=== PATIENT | female | born 1975 | race Caucasian/White ===

== ENCOUNTER → 2016-08-05 | Outpatient (CLI) | payer MEDICARE, MEDICAID ==
[~2016-08-05] MED LIST: ALBU17AE3; ALDACTONE25 MG; ALPR1T; ALPR1TAB; AMLO10TA4; BPR100TCR PO; CEPH-38 PO; CHOL2000 PO; FENO145T2 PO; HCT25T PO; HYDR-3816 PO; INSU100I16 SQ; LOSA25TA15 PO; MELO15TA14; METF-380; OMG1KC PO; PARO40TA47; PGLT30T PO; SMV20T PO; TRM50T PO; ZLP10T PO
== END ==
LOC: RAD 12:41
PROVIDERS: ATTEND Nurse Practitioner
DX: S43.431A Superior glenoid labrum lesion of right shoulder, initial encounter (principal); X58.XXXA Exposure to other specified factors, initial encounter; Y99.8 Other external cause status

== ENCOUNTER → 2016-09-10 | Outpatient (CLI) | payer MEDICARE, MEDICAID | LOC: RAD 12:43 | PROVIDERS: ATTEND Nurse Practitioner | DX: S43.431A Superior glenoid labrum lesion of right shoulder, initial encounter (principal); X58.XXXA Exposure to other specified factors, initial encounter; Y99.8 Other external cause status ==

== ENCOUNTER 2016-10-22 11:30 | Outpatient (RCR) | payer MEDICARE, MEDICAID ==
[2016-10-22] MEDS ORDERED: SUCR1TAB36 PO (14:06)
[2016-10-22] MEDS ORDERED: RT-ALBUINH IH (14:06)
[2016-10-22] MEDS ORDERED: FURO-125 PO (14:06)
[2016-10-22] MEDS ORDERED: ALPR2TAB2 PO (14:06)
[2016-10-22] MEDS ORDERED: GABA300C PO (14:06)
[2016-10-22] MEDS ORDERED: HYDR-3820 PO (14:06)
[2016-10-22] MEDS ORDERED: SPIR100T2 PO (14:06)
[2016-10-22] MEDS ORDERED: LOSA100T3 PO (14:06)
[2016-10-22] MEDS ORDERED: INSU100V5 SQ (14:06)
[2016-10-22] MEDS ORDERED: ASPI-586 PO (14:06)
[2016-10-22] MEDS ORDERED: CHOL2000 PO (14:06)
[2016-10-22] MEDS ORDERED: AMLO10TA4 PO (14:06)
[2016-10-22] MEDS ORDERED: PANT40TA2 PO (14:06)
[2016-10-22] MEDS ORDERED: FENO145T2 PO (14:11)
== END 2016-10-22 12:57 | disposition home or self-care (01) ==
PROVIDERS: ATTEND Nurse Practitioner
DX: M25.511 Pain in right shoulder (principal)

== ENCOUNTER 2016-10-22 13:46 | Outpatient (CLI) | payer MEDICARE, MEDICAID ==
[~2016-10-22] VITALS: Ht 170.2 cm; Wt 141.3 kg
[2016-10-22] MEDS ORDERED: LOSA100T3 PO (14:06)
[2016-10-22] MEDS ORDERED: HYDR-3820 PO (14:06)
[2016-10-22] MEDS ORDERED: INSU100V5 SQ (14:06)
[2016-10-22] MEDS ORDERED: SUCR1TAB36 PO (14:06)
[2016-10-22] MEDS ORDERED: ASPI-586 PO (14:06)
[2016-10-22] MEDS ORDERED: RT-ALBUINH IH (14:06)
[2016-10-22] MEDS ORDERED: FURO-125 PO (14:06)
[2016-10-22] MEDS ORDERED: ALPR2TAB2 PO (14:06)
[2016-10-22] MEDS ORDERED: CHOL2000 PO (14:06)
[2016-10-22] MEDS ORDERED: AMLO10TA4 PO (14:06)
[2016-10-22] MEDS ORDERED: PANT40TA2 PO (14:06)
[2016-10-22] MEDS ORDERED: SPIR100T2 PO (14:06)
[2016-10-22] MEDS ORDERED: GABA300C PO (14:06)
[2016-10-22] MEDS ORDERED: FENO145T2 PO (14:11)
[2016-10-22 14:12] VITALS: BP 132/86
[2016-10-22 15:27] LABS: ANION GAP 12 MMOL/L (5-14); BLOOD UREA NITROGEN 11 MG/DL (7-18); BUN/CREATININE RATIO 11; CALCIUM 9.2 MG/DL (8.5-10.1); CARBON DIOXIDE 21 MMOL/L (21-32); CHLORIDE 104 MMOL/L (98-107); CREATININE SERUM 0.99 MG/DL (0.60-1.30); GFR ESTIMATED > 60; GLUCOSE 265 MG/DL (70-105); POTASSIUM 3.9 MMOL/L (3.6-5.0); SODIUM 137 MMOL/L (135-145)
== END 2016-10-22 15:00 ==
LOC: PREOP 13:46
PROVIDERS: ATTEND Orthopaedic Surgery
DX: Z01.812 Encounter for preprocedural laboratory examination (principal); S43.491A Other sprain of right shoulder joint, initial encounter; M25.811 Other specified joint disorders, right shoulder
CPT/HCPCS: 36415; 80048; 87081

== ENCOUNTER 2016-10-29 06:05 | Day surgery (SDC) | payer MEDICARE, MEDICAID ==
--- NOTE | 2016-10-21 11:39 | HISTORY AND PHYSICAL ---
DATE OF SERVICE: This will be for outpatient surgery on 10/29/2016 for right shoulder arthroscopy. HISTORY: The patient is a 40-year-old right-hand dominant female with a two-year history of right shoulder pain. She has undergone physical therapy without relief. She reports pain with overhead activities. She denies any specific trauma. She reports difficulty with sleeping on her side. She was unable to fit in the MRI. She was unable to undergo injections due to her labile blood sugar levels and due to functional impairment and failure to improve with conservative measures, the patient has elected to proceed with surgical intervention. REVIEW OF SYSTEMS: No chest pain. No shortness of breath. No dysuria. PAST MEDICAL HISTORY: Hypertension, congestive heart failure, diabetes, osteoarthritis, hyperlipidemia, anxiety and depression. PAST SURGICAL HISTORY: Ovarian cyst excision, cholecystectomy, section, tubal ligation, hysterectomy, herniorrhaphy, bilateral carpal tunnel. FAMILY HISTORY: Significant for depression, bipolar disorder, anxiety, hypertension, COPD, alcoholism, breast cancer. PRIMARY CARE PROVIDER: . MEDICATIONS: 1. Neurontin. 2. Protonix. 3. Alprazolam. 4. Hydrocodone. 5. Ventolin. 6. Norvasc. 7. Tri-Cor. 8. Aldactone. 9. Aspirin. 10. Cozaar. 11. Furosemide. 12. Carafate. 13. Levemir. ALLERGIES: 1. DIOVAN. 2. INTUNIV. 3. TEGRETOL. 4. ABILIFY. 5. CHANTIX. 6. LEXAPRO. 7. LITHIUM. 8. TOPAMAX. 9. MOBIC. SOCIAL HISTORY: The patient smokes one pack of cigarettes a day and drinks alcohol rarely. RADIOGRAPHS: Reveal no acute or chronic changes of the right shoulder. PHYSICAL EXAMINATION: GENERAL: The patient is well-developed, well-nourished in no acute distress. HEENT: Normocephalic, atraumatic. Pupils are equal, round and reactive to light. Oropharynx is clear. LUNGS: Clear to auscultation bilaterally. HEART: Regular rate and rhythm. ABDOMEN: Soft, nontender, nondistended. EXTREMITIES: The right shoulder demonstrates positive Neer's and positive Hawkin's sign. It shows a possible Pocahontas's maneuver. She has pain with apprehension, I believe, 3 locations. Active forward elevation is 170 degrees. External rotation is 70 degrees. Internal rotation is 80 degrees. She is tender over her bicipital groove. IMPRESSION: Right shoulder impingement with a SLAP tear. PLAN: Right shoulder arthroscopy with acromioplasty and biceps tenotomy. The risks, benefits, options, ramifications and recovery were discussed at length with the patient. She understands and wishes to proceed. Job ID: [id number] DocumentID: [id number] Dictated Date: 10/21/2016 09:20:28 Wall Insulation Sprayer Date: 10/21/2016 09:43:00 Dictated By: TERRY WILKES MD
[~2016-10-29] VITALS: Ht 170.2 cm; Wt 141.3 kg
[~2016-10-29 06:05] MED LIST changes: +ALPR2TAB2 PO; +AMLO10TA4 PO; +ASPI-586 PO; +FURO-125 PO; +GABA300C PO; +HYDR-3820 PO; +INSU100V5 SQ; +LOSA100T3 PO; +PANT40TA2 PO; +RT-ALBUINH IH; +SPIR100T2 PO; +SUCR1TAB36 PO
[2016-10-29] MEDS ORDERED: NS (IVPB) 50 ML ONE (06:38)
[2016-10-29] MEDS ORDERED: ceFAZolin 1,000 MG (ANCEF) VIAL ONE (06:38)
[2016-10-29] MEDS ORDERED: LACTATED RINGERS 1,000 ML IV PRN (06:38)
[2016-10-29 06:40] VITALS: BP 119/89
[2016-10-29] MEDS ORDERED: FAMOTIDINE 20MG/2ML IV (PEPCID) IV ONE (06:45)
[2016-10-29] MEDS ORDERED: LIDOCAINE PF 2% 5 ML (XYLOCAINE) VIAL ONE (06:50)
[2016-10-29] MEDS ORDERED: ROCURONIUM 50 MG/5 ML (ZEMURON) VIAL IV ONE (06:50)
[2016-10-29] MEDS ORDERED: proPOfol 200 MG/20 ML (DIPRIVAN) VIAL IV ONE ×2 (06:50→08:13)
[2016-10-29] MEDS ORDERED: fentaNYL INJECTION 100 MCG/2 ML AMP ONE (06:51)
[2016-10-29] MEDS ORDERED: MIDAZOLAM 2 MG/2 ML (VERSED) VIAL ONE (06:51)
[2016-10-29] MEDS ORDERED: ceFAZolin 1 GM/NS 50 ML IVPB IV ONE ×2 (07:00)
[2016-10-29] MEDS ORDERED: BUPIVACAINE 0.25% 30 ML (SENSORCAINE) VIAL ONE (07:10)
[2016-10-29] MEDS ORDERED: morphine PF (DURAMORPH) 10 MG/10 ML AMP ONE (07:10)
--- NOTE | 2016-10-29 07:28 | Progress Note-Pre Operative ---
Pre-Operative Progress Note H&P Reviewed The H&P was reviewed, patient examined and no changes noted. Date Seen by Provider: Oct 29, 2016 Time Seen by Provider: 07:15 Date H&P Reviewed: Oct 29, 2016 Time H&P Reviewed: 07:12 Pre-Operative Diagnosis: right shoulder SLAP tear and rotator cuff syndrome TERRY WILKES MD Oct 29, 2016 07:28
--- NOTE | 2016-10-29 07:29 | Progress Note-Post Operative ---
Post-Operative Progess Note Surgeon (s)/Cigar Wrapper Tender Automatic (s) Surgeon TERRY WILKES MD Cigar Wrapper Tender Automatic: Charles Yu Pre-Operative Diagnosis right shoulder SLAP tear and rotator cuff syndrome Post-Operative Diagnosis right shoulder SLAP tear, labral tear and rotator cuff syndrome Procedure & Operative Findings Date of Procedure 10/29/16 Procedure Performed/Findings right shoulder arthroscopic biceps tenotomy, labral debridement and acromioplasty Anesthesia Type GETA Estimated Blood Loss Estimated blood loss (mL): minimal Specimens/Packing Specimens Removed none Packing: none TERRY WILKES MD Oct 29, 2016 07:29
[2016-10-29] MEDS ORDERED: oxyCODONE/APAP 5/325MG (PERCOCET 5) TABLET PO PRN (07:30)
[2016-10-29] MEDS ORDERED: SEVOFLURANE (ULTANE) 15 ML INHAL SOLN ONE ×2 (08:07→08:22)
[2016-10-29] MEDS ORDERED: SUCCINYLCHOLINE INJ 100 MG/5 ML SYR ONE (08:07)
[2016-10-29] MEDS ORDERED: LACTATED RINGERS 1,000 ML IV ONE (08:07)
[2016-10-29] MEDS ORDERED: ONDANSETRON 4 MG/2 ML (SDV) Z0FRAN ONE (08:07)
[2016-10-29] MEDS ORDERED: morphine INJ 10 MG/ML 1ML (SYR OR VIAL) ONE (08:32)
[2016-10-29] MEDS: morphine INJ 10 MG/ML 1ML (SYR OR VIAL) IVP PRN ×2 (08:44→08:50)
[2016-10-29] MEDS ORDERED: ONDANSETRON 4 MG/2 ML (SDV) Z0FRAN IVP PRN (09:00)
--- NOTE | 2016-10-29 09:17 | OPERATIVE REPORT ---
DATE OF SERVICE: 10/29/2016 PREOPERATIVE DIAGNOSIS 1. Right shoulder slap tear. 2. Right shoulder rotator cuff syndrome. POSTOPERATIVE DIAGNOSIS: 1. Right shoulder slap tear. 2. Right shoulder rotator cuff syndrome. 3. Right shoulder labral tear. PROCEDURES: 1. Right shoulder arthroscopic biceps tenotomy. 2. Right shoulder arthroscopic debridement. 3. Right shoulder arthroscopic acromioplasty. SURGEON: Ariel Wilkes MD SHODER FILLER: Charles Yu, who assisted throughout the procedure and closed the incisions. ANESTHESIA: General endotracheal by Bethany Hamilton CRNA. ESTIMATED BLOOD LOSS: Minimal. DRAINS: None. COMPLICATIONS: None. POSTOPERATIVE PLAN: Sling wear for comfort with progressive range of motion as symptoms allow. The patient was transported to the recovery room awake and in stable condition. STATEMENT OF MEDICAL NECESSITY: The patient is a 40-year-old right hand dominant female with complaints of right shoulder pain, worse with overhead activity. She had a positive Boulder's maneuver, positive Neer and Hawkin sign. She had crepitus with glenohumeral rotation. She had failed to respond to conservative measures and due to functional impairment, the patient elected to proceed with surgical intervention. Examination under anesthesia revealed forward elevation of 160 degrees, external rotation of 80 degrees, internal rotation 70 degrees. ARTHROSCOPIC FINDINGS: The rotator cuff was intact throughout. There was a type 2 slap tear. In addition, there was a flap tear of the anterior labrum at the 3 o'clock position, but no evidence of a Bankart, Alpsa or Hagl lesion. The humeral head and glenoid demonstrated no gross chondral abnormalities. Subcoronal space demonstrated dense bursitis with sloping into the anterolateral acromion. PROCEDURE: After risks and benefits of the procedure were discussed and questions were answered an informed consent was signed and placed on the chart. The operative site was confirmed in the preoperative holding area and initialed by the surgeon. The patient was then transported to the operative room and after adequate levels of general endotracheal anesthetic were obtained, a timeout was called to confirm the operative site. The right upper extremity was prepped and draped in the usual sterile fashion. The shoulder joint was injected with 60 mL of fluid and a standard posterior portal was placed under direct visualization. Anterior portal was created in the interval between the subscapularis, biceps and glenoid. The biceps anchor was released and the stump was debrided with the shaver. The anterior labral flap was debrided with a shaver as well. The scope was then redirected into the subacromial space and a lateral port was created. Bursectomy was performed and the acromion was to a flat type 1 acromion. The subacromial space was copiously irrigated, the port sites were closed with 4-0 nylon in a simple interrupted fashion, the shoulder was injected with Duramorph. The port sites were infiltrated with plain Marcaine. A soft dressing and sling were applied and the patient was transported to the recovery room awake and in stable condition. Job ID: [id number] DocumentID: [id number] Dictated Date: 10/29/2016 08:35:33 Computer Repairer Date: 10/29/2016 09:16:43 Dictated By: ARIEL WILKES MD
[2016-10-29 09:25] VITALS: BP 119/88
[2016-10-29] MEDS ORDERED: OXYC-197 PO (09:46)
[2016-10-29 10:00] VITALS: BP 115/69
[2016-10-29 10:30] VITALS: BP 115/69
== END 2016-10-29 10:35 | disposition home or self-care (01) ==
LOC: SDC 06:05
PROVIDERS: ATTEND Orthopaedic Surgery
DX: S43.491A Other sprain of right shoulder joint, initial encounter (principal); M75.101 Unspecified rotator cuff tear or rupture of right shoulder, not specified as traumatic; I11.0 Hypertensive heart disease with heart failure; I50.9 Heart failure, unspecified; E11.43 Type 2 diabetes mellitus with diabetic autonomic (poly)neuropathy; E78.5 Hyperlipidemia, unspecified; K21.9 Gastro-esophageal reflux disease without esophagitis; F41.9 Anxiety disorder, unspecified; E66.01 Morbid (severe) obesity due to excess calories; F32.9 Major depressive disorder, single episode, unspecified; Z79.899 Other long term (current) drug therapy; Z79.82 Long term (current) use of aspirin; F17.210 Nicotine dependence, cigarettes, uncomplicated; Z68.42 Body mass index [BMI] 45.0-49.9, adult
CPT/HCPCS: 82962

== ENCOUNTER 2016-11-14 09:00 | Outpatient (RCR) | payer MEDICARE, MEDICAID ==
[~2016-11-14 09:00] MED LIST changes: +OXYC-197 PO
== END 2016-11-15 | disposition home or self-care (01) ==
PROVIDERS: ATTEND Orthopaedic Surgery
DX: M25.511 Pain in right shoulder; Z98.890 Other specified postprocedural states

== ENCOUNTER 2016-12-10 10:18 | Outpatient (RCR) | payer MEDICARE, MEDICAID | END 2016-12-12 16:06 | disposition home or self-care (01) | PROVIDERS: ATTEND Orthopaedic Surgery | DX: M25.511 Pain in right shoulder (principal); Z98.890 Other specified postprocedural states ==

== ENCOUNTER → 2017-11-30 | Outpatient (CLI) | payer MEDICARE, MEDICAID ==
[~2017-11-30] MED LIST changes: +HYDR-34 PO; -HYDR-3816 PO; -OXYC-197 PO; +OXYC1TAB87 PO; -SPIR100T2 PO; +SPIR100T4 PO
--- NOTE | 2017-11-30 12:23 | Diagnostic Imaging Report ---
INDICATION: Routine screening. COMPARISON: 07/03/2015. TECHNIQUE: 2D and 3D bilateral screening mammography was performed with CAD. FINDINGS: Scattered fibroglandular densities are identified bilaterally. No mass or malignant-appearing microcalcifications are seen. The axillae are unremarkable. IMPRESSION: No mammographic features suspicious for malignancy are identified. ACR BI-RADS Category 1: Negative. Result letter will be mailed to the patient. Note: At least 10% of breast cancer is not imaged by mammography. Dictated by: Dictated on workstation # [id number]
== END ==
LOC: RAD 08:17
PROVIDERS: ATTEND Nurse Practitioner Community Health
DX: Z12.31 Encounter for screening mammogram for malignant neoplasm of breast (principal)
CPT/HCPCS: 77067

== ENCOUNTER → 2017-12-24 | Outpatient (CLI) | payer MEDICARE, MEDICAID ==
--- NOTE | 2017-12-24 13:21 | Diagnostic Imaging Report ---
PROCEDURE: US Thyroid. TECHNIQUE: Multiple real-time grayscale images were obtained of the thyroid in various projections. INDICATION: Lump in the throat. FINDINGS: The right lobe of the thyroid measures 6.0 x 2.6 x 2.0 cm and the left lobe measures 5.2 x 1.4 x 1.5 cm. Left lobe is homogeneous without evidence of discrete mass. There is a solid-appearing nodule in the posterior mid right lobe measuring 1.7 x 1.5 x 1.6 cm. Larger solid nodule more inferiorly in the right lobe is seen measuring 2.2 x 1.6 x 2.7 cm. No other masses are seen. IMPRESSION: Solid nodules right lobe of the thyroid, largest lower pole. Fine-needle aspiration could be performed. Dictated by: Dictated on workstation # [id number]
== END ==
LOC: RAD 11:53
PROVIDERS: ATTEND Nurse Practitioner Community Health
DX: E04.2 Nontoxic multinodular goiter (principal); E66.01 Morbid (severe) obesity due to excess calories; Z86.39 Personal history of other endocrine, nutritional and metabolic disease
CPT/HCPCS: 76536

== ENCOUNTER → 2018-01-21 | Outpatient (CLI) | payer MEDICARE, MEDICAID ==
[~2018-01-21] VITALS: Ht 167.6 cm; Wt 140.2 kg
[~2018-01-21] MED LIST changes: +LIDOCAINE 1% INJ 20 ML 20 ML VIAL INJ ONE
--- NOTE | 2018-01-21 14:02 | Diagnostic Imaging Report ---
Indication: Right thyroid nodule. Patient presents for ultrasound-guided biopsy. Patient was brought to the procedure room and placed on the table in a supine position. Ultrasound imaging over the neck was performed to evaluate appropriate entry site. Neck was then prepped and draped in the usual sterile fashion. Small amount of 1% lidocaine was utilized for local anesthesia. A total of 3 passes were made into the dominant solid nodule in the lower pole of the right lobe of the thyroid with 25-gauge needles. 2 passes were made with the 20-gauge Temno needle and small cores were obtained. Hemostasis was obtained using manual compression. Patient tolerated the procedure well and left the department in stable condition. Impression: Successful ultrasound guided right thyroid mass FNA and core biopsy, as described. Pathology results are currently pending. Dictated by: Dictated on workstation # [id number]
== END ==
LOC: RAD 09:13
PROVIDERS: ATTEND Surgery
DX: E04.1 Nontoxic single thyroid nodule (principal)
CPT/HCPCS: 76942; 88173; 88305

== ENCOUNTER → 2020-06-05 | Outpatient (CLI) | payer MEDICARE, MEDICAID ==
[~2020-06-05] MED LIST changes: +ACHYD1T PO; -HYDR-3820 PO; -LIDOCAINE 1% INJ 20 ML 20 ML VIAL INJ ONE
== END ==
LOC: CARD 12:47
PROVIDERS: ATTEND Internal Medicine Cardiovascular Disease
DX: I11.9 Hypertensive heart disease without heart failure (principal)
CPT/HCPCS: 93306

== ENCOUNTER → 2020-06-06 | Outpatient (CLI) | payer MEDICARE, MEDICAID ==
[~2020-06-06] VITALS: Ht 167 cm; Wt 134.0 kg
[~2020-06-06] MED LIST changes: +CATHETER FLUSH 10 ML SYR IV PRN; +REGADENOSON 0.4 MG/5 ML SYR (LEXISCAN) IV ONE
[2020-06-06 09:06] VITALS: BP 130/92
[2020-06-06 09:13] VITALS: BP 140/73
[2020-06-06 09:16] VITALS: BP 134/77
--- NOTE | 2020-06-06 14:01 | Cardiology Stress Test Report ---
Stress Test Report Date of Procedure/Referring: Date of Procedure: Jun 06, 2020 PCP Kosta Eid MD Admitting Physician Center/[facility] Indications: Hypertension Baseline Heart Rate: 80 Baseline Blood Pressure: Blood Pressure Systolic: 134 Blood Pressure Diastolic: 77 Baseline Vitals Vital Signs Date Time Temp Pulse Resp B/P (MAP) Pulse Ox O2 Delivery O2 Flow Rate FiO2 06/06/20 09:06 77 18 130/92 (105) 94 Room Air Summary After explaining the procedure to the patient, she signed a consent and then brought to the stress nuclear laboratory. Patient received 0.4 mg Lexiscan for stress test, ECG, heart rate and blood pressure were monitored continuously. Resting and stress dose of radio tracer were injected, imaging was acquired and reviewed in short axis, horizontal long axis and vertical long axis views. TID: 1.22 SSS: 5 SDS: 4 EF: 47 1. Patient tolerated Lexiscan well 2. Transient ischemic dilatation with TID 1.22 3. Mild decreased uptake with mild reversibility in the mid to apical anterolateral and inferolateral wall 4. Normal left ventricular size, EF 47% KOSTA EID MD Jun 06, 2020 14:01
== END ==
LOC: CARD 07:45
PROVIDERS: ATTEND Internal Medicine Cardiovascular Disease
DX: I10 Essential (primary) hypertension (principal); R07.9 Chest pain, unspecified
CPT/HCPCS: 78452; 93017; A9502

== ENCOUNTER 2020-06-13 11:00 | Day surgery (SDC) | payer MEDICARE, MEDICAID ==
[2020-06-13] VITALS (8 sets, daily range): BP systolic 102–120; BP diastolic 71–91
[~2020-06-13] VITALS: Ht 167.6 cm; Wt 136.1 kg
[2020-06-13 09:19] LABS: HEMOGLOBIN 17.3 g/dL (11.5-16.0); MEAN PLATELET VOLUME 10.5 fL (9.0-12.2); WHITE BLOOD COUNT 11.9 10^3/uL (4.3-11.0)
[2020-06-13 09:38] LABS: INR 0.9 (0.8-1.4); PROTHROMBIN TIME PATIENT 12.5 SEC (12.2-14.7)
[2020-06-13 09:48] LABS: ALANINE AMINOTRANSFERASE 22 U/L (0-55); ALBUMIN 4.5 GM/DL (3.2-4.5); ALKALINE PHOSPHATASE 79 U/L (40-136); BILIRUBIN,TOTAL 0.4 MG/DL (0.1-1.0); BUN/CREATININE RATIO 11; CALCIUM 9.4 MG/DL (8.5-10.1); CARBON DIOXIDE 22 MMOL/L (21-32); CHLORIDE 100 MMOL/L (98-107); CHOLESTEROL 203 MG/DL (< 200); CREATININE SERUM 0.95 MG/DL (0.60-1.30); GFR ESTIMATED > 60; GLUCOSE 242 MG/DL (70-105); HDL CHOLESTEROL 45 MG/DL (40-60); POTASSIUM 4.1 MMOL/L (3.6-5.0); SODIUM 137 MMOL/L (135-145); TOTAL PROTEIN 7.8 GM/DL (6.4-8.2); TRIGLYCERIDES 316 MG/DL (<150); VLDL CHOLESTEROL 63 MG/DL (5-40)
--- NOTE | 2020-06-13 10:01 | Diagnostic Imaging Report ---
PATIENT HISTORY: Chest pain. TECHNIQUE: Single frontal view of the chest. COMPARISON: 04/08/2007. FINDINGS: The lung volumes are normal. No focal consolidation is seen. No large pleural effusion or pneumothorax is seen. The cardiomediastinal silhouette is normal in size and contour. No acute osseous abnormality is seen. IMPRESSION: No acute pulmonary abnormality seen. Dictated by: Dictated on workstation # [id number]
[~2020-06-13 11:00] MED LIST changes: +AMIT25TA9 PO; +AMLO-251 PO; +ASPI-1238 PO; -CATHETER FLUSH 10 ML SYR IV PRN; +CETI10TA17 PO; +CHOL20002 PO; +CNC1KV IM; +CYCL10TA9 PO; +DICY20TA10 PO; +DULO60CA59 PO; +ESTR42.52 VG; +HALO15CR2 TP; +HEParin (CATH LAB) 2,000 ML IV ONE; +IBUP-1780 PO; +INSU100I14 SQ; +INSU200I4 SQ; +LEVO200T6 PO; +LEVO300T5 PO; +LIDOCAINE 1% INJ 20 ML 20 ML VIAL ONE; +LOSA50TA63 PO; +METF750T45 PO; +MUPI22OI2 TP; +NS IV 1000 ML 1,000 ML IV SCH; +NS IV 1000 ML 1,000 ML ONE; +NYST15CR TP; +PANT40TA52 PO; +PROP20TA5 PO; -REGADENOSON 0.4 MG/5 ML SYR (LEXISCAN) IV ONE; +RT-ALBUINH INH; +SEMA1PEN SQ
[2020-06-13] MEDS ORDERED: MIDAZOLAM 5 MG/5 ML (VERSED) VIAL ONE (11:18)
[2020-06-13] MEDS ORDERED: HEParin 1000 UNIT/ML (10ML VIAL) FOR BOLUS ONE (11:18)
[2020-06-13] MEDS ORDERED: fentaNYL INJ 100 MCG/2 ML AMP ONE (11:18)
[2020-06-13] MEDS ORDERED: VERAPAMIL 5 MG/2 ML (CALAN) VIAL IV ONE (11:18)
[2020-06-13] MEDS ORDERED: NITRO DRIP 25000 MCG/D5W 250 ML IV ONE (11:19)
--- NOTE | 2020-06-13 11:38 | Conscious Sedation/ASA ---
Conscious Sedation Pre-Proced Time 11:38 ASA Score 3 For ASA 3 and 4: Consider anesthesia and medical clearance. Also, for patients with a history of failed moderate sedation consider anesthesia. Airway Lungs Heart ASA score ASA 1: a normal healthy patient ASA 2: a patient with a mild systemic disease (mid diabetes, controlled hypertension, obesity x ASA 3: a patient with a severe systemic disease that limits activity (angina, COPD, prior Myocardial infarction) ASA 4: a patient with an incapacitating disease that is a constant threat to life (CHF, renal failure) ASA 5: a moribund patient not expected to survive 24 hrs. (ruptured aneurysm) ASA 6: a declared brain- patient whose organs are being harvested. For emergent operations, add the letter E after the classification Mallampati Classification Grade 3 Sedation Plan Analgesia, Amnesia, Plan communicated to team members, Discussed options with patient/fam, Discussed risks with patient/fam The patient is an appropriate candidate to undergo the planned procedure, sedation, and anesthesia. The patient immediately re-assessed prior to indication. KOSTA LANDERS MD Jun 13, 2020 11:38
[2020-06-13] MEDS ORDERED: METF750T45 PO (12:13)
--- NOTE | 2020-06-13 12:14 | Discharge Inst-Post CATH ---
Discharge Inst-CATH/EP Problems Reviewed?: Yes Post Cardiac Cath/EP D/C Inst Follow Up/Plan Appointment with Dr. Eid's office in 2 to 4 weeks <b>CARDIAC CATH/EP PROCEDURE DISCHARGE INSTRUCTIONS</b> ACTIVITY * Go Home directly and rest. * Limit activity of the leg (or wrist if it was used) for 7 days including aer obics, swimming, jogging, bicycling, etc. * Restrict stair-climbing for 7 days if possible, if not, climb up with your non-cath leg, then bring together on the same step. * Avoid lifting, pushing, pulling or excessive movement of the affected extremi ty for 7 days. * Customary sexual activity may be resumed after 2 days-use caution not to use a position that strains or causes pain to the affected extremity. * No driving for 24 hours. * NO SMOKING. * Avoid straining for bowel movements for 7 days. * Gentle walking on level ground is allowed. * Returning to work will depend on the type of procedure and the results. Your doctor will discuss this with you. CALL YOUR DOCTOR FOR ANY OF THE FOLLOWING: *If bleeding from the puncture site occurs- Apply gentle pressure to site with clean cloth and call your doctor or EMS. * If a knot or lump forms under the skin, increases in size, or causes pain. * If bruising appears to be worsening or moving further down your leg instead of disappearing. * Temperature above 101 F. CARE OF YOUR GROIN INCISION; * Bruising or purple discoloration of the skin near the puncture site is common. * You may shower only, no bathtub bathing for 5 days. Be careful to avoid slipping as your leg may feel stiff. * If a closure device was used on your femoral artery, please see the attached guide regarding care of the device and your leg. * Leave dressing on FOR 24 hours. CARE OF YOUR WRIST INCISION; * Bruising or purple discoloration of the skin near the puncture site is common. * You may shower. * DO NOT submerge wrist. * Leave dressing on FOR 24 hours. KOSTA EID MD Jun 13, 2020 12:14 pm
[2020-06-13] MEDS ORDERED: NS IV 1000 ML 1,000 ML IV SCH (12:15)
--- NOTE | 2020-06-13 12:23 | Cardiac Cath Report ---
Cardiac Cath Report Physician (s)/Stock Plan Administrator (s) Physician KOSTA LANDERS MD Pre-Procedure Diagnosis Pre-Procedure Diagnosis: Coronary artery disease Post-Procedure Note Procedure Start Date: Jun 13, 2020 Name of Procedure: Left heart catheterization Aortic arch angiogram Findings/Procedure Note PROCEDURE NOTE: 44-year-old lady with history of coronary artery disease, coronary aneurysm, had a cardiac catheterization in the remote past, has been having shortness of breath, fatigue and chest pain. Had an abnormal stress test, scheduled for cardiac catheterization possible PTCA. After explaining the procedure to the patient, all pros and cons were explained, all questions were answered. The patient signed the consent and then she was placed on the cardiac catheterization laboratory. Groin was prepped SL fashion local anesthesia was used. Sheath placed in the right radial artery, Ettrick catheter was advanced to the left ventricular cavity, pressure was measured, pullback LV to aorta was done,intubated the left coronary system, exchanged the catheter to the Romy right and intubated the right coronary system Left ventriculogram was not done, pressure was measured Aortic arch angiogram was done At the end of the procedure the sheath was removed. Closure device FINDINGS: Hemodynamics LV 118/12 Aorta 109/84/94 ANATOMY: Left Main has aneurysmal dilatation Left Anterior Descending has significant aneurysmal dilatation of the proximal mid and slow flow distally Left Circumflex is moderate in size with nonobstructive disease Right Coronory Artery has diffuse ectasia with severe aneurysmal dilatation in the proximal and midportion LV Gram was not done, pressure was measured Aorta evaluation done with aortic arch angiogram showing normal aortic arch, no dissection or aneurysm, normal brachiocephalic artery, normal left carotid and left subclavian arteries CONCLUSION: 1. 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 Slow flow in the LAD and right coronary artery 2. Normal left ventricular end-diastolic pressure 3. Normal aortic arch and great vessels of the neck DISCUSSION AND RECOMMENDATION: Medical therapy is recommended no intervention is warranted Anesthesia Type: Conscious Sedation Estimated blood loss (mL): 10 ml Contrast Amount: 62 ml Total Radiation Dose: 680 mGy Post-Procedure Diagnosis Post-operative diagnosis: Chest pain Coronary artery disease Hypertension Hyperlipidemia KOSTA LANDERS MD Jun 13, 2020 12:23 pm
== END 2020-06-13 15:05 | disposition home or self-care (01) ==
LOC: CATH 11:00
PROVIDERS: ATTEND Internal Medicine Cardiovascular Disease
DX: I25.10 Atherosclerotic heart disease of native coronary artery without angina pectoris (principal); I10 Essential (primary) hypertension; E78.5 Hyperlipidemia, unspecified; E11.9 Type 2 diabetes mellitus without complications; E78.00 Pure hypercholesterolemia, unspecified; I65.23 Occlusion and stenosis of bilateral carotid arteries; E78.2 Mixed hyperlipidemia; F17.210 Nicotine dependence, cigarettes, uncomplicated; E66.01 Morbid (severe) obesity due to excess calories; Z68.42 Body mass index [BMI] 45.0-49.9, adult; Z79.899 Other long term (current) drug therapy; Z79.84 Long term (current) use of oral hypoglycemic drugs; Z79.890 Hormone replacement therapy; Z88.8 Allergy status to other drugs, medicaments and biological substances
CPT/HCPCS: 36221; 71045; 80053; 80061; 85027; 85610; 85730; 87081; 93458; C1894; 36415

== ENCOUNTER → 2020-06-19 | Outpatient (CLI) | payer MEDICARE, MEDICAID ==
[~2020-06-19] MED LIST changes: -HEParin (CATH LAB) 2,000 ML IV ONE; -LIDOCAINE 1% INJ 20 ML 20 ML VIAL ONE; -NS IV 1000 ML 1,000 ML IV SCH; -NS IV 1000 ML 1,000 ML ONE
== END ==
LOC: WOUNDCARE 08:42
PROVIDERS: ATTEND Surgery
DX: L98.492 Non-pressure chronic ulcer of skin of other sites with fat layer exposed (principal); E11.622 Type 2 diabetes mellitus with other skin ulcer; E66.01 Morbid (severe) obesity due to excess calories; L73.2 Hidradenitis suppurativa
CPT/HCPCS: 11042; A6207; A6212; G0463

== ENCOUNTER → 2020-06-25 | Outpatient (CLI) | payer MEDICARE, MEDICAID ==
--- NOTE | 2020-06-25 13:59 | Diagnostic Imaging Report ---
INDICATION: PAPILLARY CARCINOMA THYROID TECHNIQUE: Multiple real time umanzor scale sonographic images were obtained of the thyroid bed.. CORRELATION STUDY: None FINDINGS: Ultrasound imaging of thyroid bed demonstrates no definitive soft tissue echotexture to be present. No definitive solid or cystic mass. No abnormal enlarged cervical lymph nodes. IMPRESSION: 1.No sonographic evidence for definitive residual recurrent thyroid tissue of thyroid bed. However, small remnants could easily go undetected on ultrasound imaging. Dictated by: Dictated on workstation # [id number]
== END ==
LOC: RAD 12:30
PROVIDERS: ATTEND Internal Medicine Endocrinology, Diabetes & Metabolism
DX: C73 Malignant neoplasm of thyroid gland (principal)
CPT/HCPCS: 76536

== ENCOUNTER → 2020-07-03 | Outpatient (CLI) | payer MEDICARE, MEDICAID | LOC: WOUNDCARE 08:03 | PROVIDERS: ATTEND Surgery | DX: L73.9 Follicular disorder, unspecified (principal); I96 Gangrene, not elsewhere classified; L98.492 Non-pressure chronic ulcer of skin of other sites with fat layer exposed; E11.622 Type 2 diabetes mellitus with other skin ulcer; E66.01 Morbid (severe) obesity due to excess calories; L73.2 Hidradenitis suppurativa; Z68.42 Body mass index [BMI] 45.0-49.9, adult | CPT/HCPCS: A6207; A6212; G0463; 99213 ==

== ENCOUNTER → 2020-07-10 | Outpatient (CLI) | payer MEDICARE, MEDICAID | LOC: WOUNDCARE 08:09 | PROVIDERS: ATTEND Surgery | DX: I96 Gangrene, not elsewhere classified (principal); L73.9 Follicular disorder, unspecified; L98.492 Non-pressure chronic ulcer of skin of other sites with fat layer exposed; E11.622 Type 2 diabetes mellitus with other skin ulcer; E66.01 Morbid (severe) obesity due to excess calories; L73.2 Hidradenitis suppurativa; Z68.42 Body mass index [BMI] 45.0-49.9, adult | CPT/HCPCS: A6212; G0463; 99213 ==

== ENCOUNTER 2020-11-23 14:45 | Emergency (ER) | payer MEDICARE, MEDICAID ==
[~2020-11-23] VITALS: Ht 167.7 cm; Wt 133.8 kg
[2020-11-23 15:19] LABS: BASOPHILS # (AUTO) 0.1 10^3/uL (0.0-0.1); BASOPHILS % (AUTO) 1 % (0-10); EOSINOPHILS # (AUTO) 0.3 10^3/uL (0.0-0.3); EOSINOPHILS % (AUTO) 3 % (0-10); HEMATOCRIT 49 % (35-52); HEMOGLOBIN 16.2 g/dL (11.5-16.0); LYMPHOCYTES # (AUTO) 4.4 10^3/uL (1.0-4.0); LYMPHOCYTES % (AUTO) 44 % (12-44); MEAN CORPUSCULAR HEMOGLOBIN 30 pg (25-34); MEAN CORPUSCULAR HGB CONC 33 g/dL (32-36); MEAN CORPUSCULAR VOLUME 89 fL (80-99); MEAN PLATELET VOLUME 10.7 fL (9.0-12.2); MONOCYTES # (AUTO) 0.6 10^3/uL (0.0-1.0); MONOCYTES % (AUTO) 6 % (0-12); NEUTROPHILS # (AUTO) 4.7 10^3/uL (1.8-7.8); NEUTROPHILS % (AUTO) 47 % (42-75); PLATELET COUNT 214 10^3/uL (130-400); WHITE BLOOD COUNT 10.1 10^3/uL (4.3-11.0)
--- NOTE | 2020-11-23 15:25 | Diagnostic Imaging Report ---
EXAM: CHEST 1 VIEW, AP/PA ONLY INDICATION: Chest pain. COMPARISON: 06/13/2020. FINDINGS: Normal heart size and pulmonary vascularity. No dense consolidation, pleural effusion or pneumothorax. No acute osseous findings. IMPRESSION: No acute cardiopulmonary findings. Dictated by: Dictated on workstation # [id number]
[2020-11-23 15:39] LABS: ALBUMIN 3.9 GM/DL (3.2-4.5)
[2020-11-23 15:40] LABS: CALCIUM 9.6 MG/DL (8.5-10.1)
[2020-11-23 15:41] LABS: TOTAL PROTEIN 6.9 GM/DL (6.4-8.2)
[2020-11-23 15:43] LABS: BILIRUBIN,TOTAL 0.3 MG/DL (0.1-1.0)
[2020-11-23 15:45] LABS: CREATININE SERUM 0.98 MG/DL (0.60-1.30); INR 0.9 (0.8-1.4); PROTHROMBIN TIME PATIENT 12.7 SEC (12.2-14.7)
[2020-11-23] MEDS ORDERED: ASPIRIN 81 MG CHEW (CHILDREN'S ASA) PO ONE (15:45)
[2020-11-23 15:48] LABS: MAGNESIUM 1.6 MG/DL (1.6-2.4)
--- NOTE | 2020-11-23 16:18 | ED Chest Pain ---
General Chief Complaint: Chest Pain Stated Complaint: CHEST TIGHTNESS,ABNORMAL EKG Nursing Triage Note: Pt ambulatory into ER with complaint of chest pain x3 days. Pt states that pain is a squeezing like pain. Pt states that she had had history of heart cath and sees Dr. Kahn. Pain rated at a 5/10 today, but has worsened from time to time. Pt states that it feels like her chest and heart is being squuezed like a bear hug. Pt denies other complaints. Source: patient Exam Limitations: no limitations History of Present Illness Date Seen by Provider: Nov 23, 2020 Time Seen by Provider: 15:15 Initial Comments Here with report of central chest pain that is worse with activity and better with rest. She follows with Dr. Eid. States pain is squeezing and aching. More on the left side under the left breast but does go to the right shoulder. Associated with some nausea and sweating as well as some weakness. She did have negative heart cath earlier this year. 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 NTG SL BAND MAKER: No Associated Symptoms: No abdominal pain; back pain, diaphoresis; No fever/chills, No nausea/vomiting; shortness of breath Allergies and Home Medications Allergies Coded Allergies: aripiprazole (Verified Allergy, Intermediate, ELEVATED BLOOD SUGARS, 10/22/16) atorvastatin (Verified Allergy, Intermediate, LEG CRAMPS, 10/22/16) carbamazepine (Verified Allergy, Intermediate, NAUSEA, H/A, 10/22/16) guanfacine (Verified Allergy, Intermediate, HIVES/VOMITTING, 10/22/16) meloxicam (Verified Allergy, Intermediate, SOB, 10/22/16) metformin (Verified Allergy, Intermediate, GI UPSET, 10/22/16) metronidazole (Verified Allergy, Intermediate, KIDNEY PROBLEMS, 10/22/16) lisinopril (Unverified Allergy, Unknown, 03/26/15) meperidine (Verified Allergy, Unknown, 12/30/05) valsartan (Unverified Allergy, Unknown, 03/26/15) Patient Home Medication List Home Medication List Reviewed: Yes Albuterol Sulfate (Ventolin Hfa) 1 Puff Puff, 2 PUFF INH Q4H PRN for SHORTNESS OF BREATH, (Reported) Entered as Reported by: CALE PAINTING on 06/13/20 1028 Amitriptyline HCl (Amitriptyline HCl) 25 Mg Tablet, 25 MG PO HS, (Reported) Entered as Reported by: CALE PAINTING on 06/13/20 1028 Amlodipine Besylate (Amlodipine Besylate) 10 Mg Tablet, 10 MG PO DAILY, (Reported) Entered as Reported by: CALE PAINTING on 06/13/20 1028 Aspirin (Aspirin EC) 81 Mg Tablet.dr, 81 MG PO, (Reported) Entered as Reported by: CALE PAINTING on 06/13/20 102 Cetirizine HCl (Cetirizine HCl) 10 Mg Tablet, 10 MG PO DAILY, (Reported) Entered as Reported by: CALE PAINTING on 06/13/20 1028 Cholecalciferol (Vitamin D3) (Vitamin D3) 50 Mcg Capsule, 100 MCG PO HS, (Reported) Entered as Reported by: CALE PAINTING on 06/13/20 1028 Cyanocobalamin (Cyanocobalamin Injection) 1,000 Mcg/Ml Inj, 1 ML IM MONTHLY, (Reported) Entered as Reported by: CALE PAINTING on 06/13/20 1028 Cyclobenzaprine HCl (Cyclobenzaprine HCl) 10 Mg Tablet, 10 MG PO BID PRN for MUSCLE CRAMPS, (Reported) Entered as Reported by: CAEL PAINTING on 06/13/20 1028 Dicyclomine HCl (Dicyclomine HCl) 20 Mg Tablet, 20 MG PO TID PRN for IBS, (Reported) Entered as Reported by: CALE PAINTING on 06/13/20 102 Duloxetine HCl (Duloxetine HCl) 60 Mg Capsule.dr, 60 MG PO BID, (Reported) Entered as Reported by: CALE PAINTING on 06/13/20 1028 Estradiol (Estrace Cream) 42.5 Gm Cream.appl, 1 APPLIC VG MAIA CHRISTENSEN THUR, (Reported) Entered as Reported by: CALE PAINTING on 06/13/20 1028 Fenofibrate Nanocrystallized (Tricor) 145 Mg Tablet, 145 MG PO HS, (Reported) Entered as Reported by: AMBREEN VILLEDA on 10/22/16 1411 Halobetasol Propionate (Halobetasol Propionate) 15 Gm Cream..g., 1 APPLIC TP TID PRN for SKIN IRRITATION, (Reported) Entered as Reported by: CALE PAINTING on 06/13/20 1028 Ibuprofen (Ibuprofen) 800 Mg Tablet, 800 MG PO TID PRN for PAIN-MILD (1-4), (Reported) Entered as Reported by: CALE PAINTING on 06/13/20 1028 Insulin Aspart (Novolog Flexpen) 300 Units/3 Ml Solution, 30 UNITS SQ AC, (Reported) Entered as Reported by: CALE PAINTING on 06/13/20 1028 Insulin Degludec (Tresiba Flextouch U-200) 200 Unit/1 Ml Insuln.pen, 60 UNIT SQ BID, (Reported) Entered as Reported by: CALE PAINTING on 06/13/20 1028 Levothyroxine Sodium (Levothyroxine Sodium) 200 Mcg Tablet, 200 MCG PO SUN, (Reported) Entered as Reported by: CALE PAINTING on 06/13/20 1028 Levothyroxine Sodium (Levothyroxine Sodium) 300 Mcg Tablet, 300 MCG PO MO,TU,WE,ESHA,FR,SAT, (Reported) Entered as Reported by: CALE PAINTING on 06/13/20 1028 Losartan Potassium (Losartan Potassium) 50 Mg Tablet, 50 MG PO HS, (Reported) Entered as Reported by: CALE PAINTING on 06/13/20 1028 Metformin HCl (Metformin HCl ER) 750 Mg Tab.er.24h, 750 MG PO BID Prescribed by: KOSTA EID on 06/13/20 1213 Mupirocin (Mupirocin) 22 Gm Oint...g., 1 APPLIC TP UD PRN for SORES, (Reported) Entered as Reported by: CALE PAINTING on 06/13/20 1028 Nystatin (Nystatin) 15 Gm Cream..g., 1 APPLIC TP BID PRN for GAULDING, (Reported) Entered as Reported by: CALE PAINTING on 06/13/20 1028 Pantoprazole Sodium (Pantoprazole Sodium) 40 Mg Tablet.dr, 40 MG PO BID, (Reported) Entered as Reported by: CALE PAINTING on 06/13/20 1028 Propranolol HCl (Propranolol HCl) 20 Mg Tablet, 20 MG PO BID, (Reported) Entered as Reported by: CALE PAINTING on 06/13/20 1028 Semaglutide (Ozempic) 1 Mg/0.75 Ml Pen.injctr, 1 MG SQ SUN, (Reported) Entered as Reported by: CALE PAINTING on 06/13/20 1028 Spironolactone (Spironolactone) 100 Mg Tablet, 100 MG PO DAILY, (Reported) Entered as Reported by: CALE PAINTING on 06/13/20 1028 Review of Systems Review of Systems Constitutional: see HPI; No chills EENTM: No Nose Pain, No Throat Swelling Respiratory: SOA With Exertion; Denies Wheezing Cardiovascular: Chest Pain, Lightheadedness Gastrointestinal: Denies Diarrhea; Nausea Genitourinary: No Symptoms Reported Musculoskeletal: back pain; No muscle pain Skin: no symptoms reported Psychiatric/Neurological: No Symptoms Reported All Other Systems Reviewed Negative Unless Noted: Yes Past Mkoevqm-Twxrga-Nextct Hx Patient Social History Tobacco Use?: Yes Tobacco type used: Cigarettes Smoking Status: Current Everyday Smoker Use of E-Cig and/or Vaping dev: No Substance use?: No Alcohol Use?: No Pt feels they are or have been: No Immunizations Up To Date Tetanus Booster (TDap): Less than 5yrs Influenza Vaccine Up-to-Date: No; Not Current Seasonal Allergies Seasonal Allergies: Yes Past Medical History Abdominal, Appendectomy, Cardiac, Section, Gallbladder, Hysterectomy, Oophorectomy, Thyroidectomy, Tubal Ligation Respiratory: Yes (asthma, O2 2L AT NIGHT) Asthma Cardiac: Yes (CHF) Heart Murmur, High Cholesterol, Hypertension Neurological: Yes Headaches /Migraines, Neuropathy 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 Sexually Transmitted Disease: No HIV/AIDS: No Genitourinary: No Gastrointestinal: Yes (CHRONIC INFLAMMATION OF STOMACH LINING, INCISIONAL HERNIA) Gastroesophageal Reflux Arthritis, Chronic Back Pain Diabetes, Non-Insulin dep Loss of Vision: Bilateral Hearing Impairment: Denies Cancer: Yes Thyroid Did You Recieve Any Treatments: No Anxiety, Depression Blood Disorders: No Adverse Reaction/Blood Tranf: No Family Medical History Reviewed Nursing Family Hx No Pertinent Family Hx Physical Exam Vital Signs Vital Signs - First Documented 11/23/20 15:18 Temp 36.7 Pulse 93 Resp 20 B/P (MAP) 149/97 (114) Pulse Ox 98 O2 Delivery Room Air Capillary Refill : Height, Weight, BMI Height: 5'6.00" Weight: 309lbs. 0.0oz. [id number]; 47.00 BMI Method:Estimated General Appearance: No Apparent Distress, WD/WN, Obese HEENT: PERRL/EOMI, Pharynx Normal Neck: Non Tender, Supple Respiratory: Lungs Clear, Normal Breath Sounds Cardiovascular: Regular Rate, Rhythm, No Murmur Gastrointestinal: Non Tender, Soft Extremity: Normal Range of Motion, Non Tender Neurologic/Psychiatric: Alert, Oriented x3 Skin: Normal Color, Warm/Dry Progress/Results/Core Measures Results/Orders Lab Results Laboratory Tests Test 11/23/20 15:09 Range/Units White Blood Count 10.1 4.3-11.0 10^3/uL Red Blood Count 5.47 H 3.80-5.11 10^6/uL Hemoglobin 16.2 H 11.5-16.0 g/dL Hematocrit 49 35-52 % Mean Corpuscular Volume 89 80-99 fL Mean Corpuscular Hemoglobin 30 25-34 pg Mean Corpuscular Hemoglobin Concent 33 32-36 g/dL Red Cell Distribution Width 13.2 10.0-14.5 % Platelet Count 214 130-400 10^3/uL Mean Platelet Volume 10.7 9.0-12.2 fL Immature Granulocyte % (Auto) 1 % Neutrophils (%) (Auto) 47 42-75 % Lymphocytes (%) (Auto) 44 12-44 % Monocytes (%) (Auto) 6 0-12 % Eosinophils (%) (Auto) 3 0-10 % Basophils (%) (Auto) 1 0-10 % Neutrophils # (Auto) 4.7 1.8-7.8 10^3/uL Lymphocytes # (Auto) 4.4 H 1.0-4.0 10^3/uL Monocytes # (Auto) 0.6 0.0-1.0 10^3/uL Eosinophils # (Auto) 0.3 0.0-0.3 10^3/uL Basophils # (Auto) 0.1 0.0-0.1 10^3/uL Immature Granulocyte # (Auto) 0.1 0.0-0.1 10^3/uL Prothrombin Time 12.7 12.2-14.7 SEC INR Comment 0.9 0.8-1.4 Activated Partial Thromboplast Time 26 24-35 SEC D-Dimer <= 0.27 0.00-0.49 UG/ML Sodium Level 136 135-145 MMOL/L Potassium Level 4.0 3.6-5.0 MMOL/L Chloride Level 102 98-107 MMOL/L Carbon Dioxide Level 20 L 21-32 MMOL/L Anion Gap 14 5-14 MMOL/L Blood Urea Nitrogen 11 7-18 MG/DL Creatinine 0.98 0.60-1.30 MG/DL Estimat Glomerular Filtration Rate 61 BUN/Creatinine Ratio 11 Glucose Level 216 H 70-105 MG/DL Calcium Level 9.6 8.5-10.1 MG/DL Corrected Calcium 9.7 8.5-10.1 MG/DL Magnesium Level 1.6 1.6-2.4 MG/DL Total Bilirubin 0.3 0.1-1.0 MG/DL Aspartate Amino Transf (AST/SGOT) 24 5-34 U/L Alanine Aminotransferase (ALT/SGPT) 24 0-55 U/L Alkaline Phosphatase 76 40-136 U/L Myoglobin 72.1 10.0-92.0 NG/ML Troponin I < 0.028 <0.028 NG/ML C-Reactive Protein High Sensitivity 0.45 0.00-0.50 MG/DL B-Type Natriuretic Peptide < 10.0 <100.0 PG/ML Total Protein 6.9 6.4-8.2 GM/DL Albumin 3.9 3.2-4.5 GM/DL My Orders Orders - ISABELLE WILLOUGHBY MD BNP (11/23/20 15:39) Fibrin Degradation Products (11/23/20 15:39) Aspirin Chewable Tablet (Baby Aspirin Ch (11/23/20 15:45) Hs C Reactive Protein (11/23/20 15:41) Prednisone Tablet (Deltasone Tablet) (11/23/20 17:45) Medications Given in ED Current Medications Medications Dose Ordered Sig/Stephen Route Start Time Stop Time Status Last Admin Dose Admin Aspirin 243 mg ONCE ONCE PO 11/23/20 15:45 11/23/20 15:46 DC 11/23/20 16:28 243 MG Prednisone 40 mg ONCE ONCE PO 11/23/20 17:45 11/23/20 17:46 DC 11/23/20 17:55 40 MG Vital Signs/I&O 11/23/20 15:18 Temp 36.7 Pulse 93 Resp 20 B/P (MAP) 149/97 (114) Pulse Ox 98 O2 Delivery Room Air Blood Pressure Mean: 114 Progress Progress Note : Progress Note Seen and evaluated. Chest pain protocol initiated. ASA 243 mg p.o. ordered. Chart reviewed for cardiac cath shows information below. This was done on 06/13/2020. Monitor patient. 1800: Labs reviewed and are negative. We did have patient do 2 puffs of her albuterol inhaler via spacer which she says helped quite a bit. Prednisone 40 mg p.o. ordered. This does seem to be more long in nature and likely reactive airway disease. She is a long-term smoker and has COPD in the setting of time of allergies. Overall she is feeling much better. Discharged home with return precautions. Patient verbalized understanding instructions and agreement with plan. CONCLUSION: 1. 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 Slow flow in the LAD and right coronary artery 2. Normal left ventricular end-diastolic pressure 3. Normal aortic arch and great vessels of the neck DISCUSSION AND RECOMMENDATION: Medical therapy is recommended no intervention is warranted Initial ECG Impression Date: Nov 23, 2020 Initial ECG Impression Time: 14:50 Initial ECG Rate: 86 Initial ECG Rhythm: Normal Sinus Initial ECG Impression: Normal Initial ECG Comparisson: Unchanged Comment Sinus rhythm with normal axis. No evidence of ST elevation [place]. Unchanged from previous of 04/01/2007. Interpreted by me. Departure Impression Primary Impression: Reactive airway disease Qualified Codes: J45.21 - Mild intermittent asthma with (acute) exacerbation Additional Impression: Chest pain Qualified Codes: R07.9 - Chest pain, unspecified Disposition: 01 HOME, SELF-CARE Condition: Improved Departure-Patient Inst. Decision time for Depature: 18:07 Referrals: [facility] [place] (PCP/Family) Primary Care Physician Patient Instructions: Chest Pain (DC), Chronic Obstructive Pulmonary Disease (COPD), Including Emphysema Add. Discharge Instructions: All discharge instructions reviewed with patient and/or family. Voiced understanding. Take medications as directed. Use your albuterol inhaler with spacer 2 puffs every 4-6 hours as needed for wheezing or shortness of breath. Follow-up with your doctor including your heart doctor early next week for recheck and further evaluation. Return for worse pain, fever, vomiting, weakness, breathing problems or other concerns as needed. Scripts Prednisone (Prednisone) 20 Mg Tab 40 MG PO DAILY, #8 TAB 0 Refills Prov: ISABELLE WILLOUGHBY MD 11/23/20 ISABELLE WILLOUGHBY MD Nov 23, 2020 16:18
[2020-11-23] MEDS ORDERED: predniSONE 20 MG TAB PO ONE (17:45)
[2020-11-23] MEDS ORDERED: PRD20T PO (18:09)
[2020-11-23 20:26] VITALS: BP 125/86
== END 2020-11-23 18:40 | disposition home or self-care (01) ==
LOC: EDUNIT# 14:45 → ER 14:47
DX: J45.21 Mild intermittent asthma with (acute) exacerbation (principal); E11.40 Type 2 diabetes mellitus with diabetic neuropathy, unspecified; I10 Essential (primary) hypertension; E78.00 Pure hypercholesterolemia, unspecified; F41.9 Anxiety disorder, unspecified; F32.9 Major depressive disorder, single episode, unspecified; G43.909 Migraine, unspecified, not intractable, without status migrainosus; K21.9 Gastro-esophageal reflux disease without esophagitis; F17.210 Nicotine dependence, cigarettes, uncomplicated; Z85.850 Personal history of malignant neoplasm of thyroid; Z88.8 Allergy status to other drugs, medicaments and biological substances; Z88.5 Allergy status to narcotic agent; Z99.81 Dependence on supplemental oxygen; Z79.4 Long term (current) use of insulin; Z79.82 Long term (current) use of aspirin; Z79.899 Other long term (current) drug therapy
CPT/HCPCS: 36415; 71045; 80053; 83735; 83874; 83880; 84484; 85025; 85379; 85610; 85730; 86141; 93005; 93041

== ENCOUNTER → 2022-07-21 | Outpatient (CLI) | payer MEDICARE, MEDICAID ==
[~2022-07-21] MED LIST changes: +ALBU8.5H6 IH; +CYCL10TA25 PO; -CYCL10TA9 PO; +DICY20TA PO; -DICY20TA10 PO; -LOSA100T3 PO; +LOSA100T4 PO; -NYST15CR TP; +NYST15CR35 TP; +PRD20T PO; -RT-ALBUINH IH
== END ==
LOC: CARD 11:05
PROVIDERS: ATTEND Internal Medicine Cardiovascular Disease
DX: I10 Essential (primary) hypertension (principal)
CPT/HCPCS: 93306